=== PATIENT | male | born 1995 | race African-American/Black ===

== ENCOUNTER 2023-08-09 12:07 | Emergency (ER) | payer SELFPAY ==
[2023-08-09 12:16] VITALS: BP 126/77; PULSE 62; RESP 18; TEMP 98.2; BMI 27.0
[2023-08-09] MEDS ORDERED: BUPIVACAINE HCL/PF 0.5% (5 MG/ML) 30 ML VIAL IJ ONE (12:55)
[2023-08-09] MEDS ORDERED: LIDOCAINE HCL 2% (50ML VIAL) INF ONE (12:55)
[2023-08-09] MEDS ORDERED: LIDOCAINE HCL 2% (20ML MULTI-DOSE VIAL) ONE (13:03)
[2023-08-09] MEDS ORDERED: BUPIVACAINE HCL/PF 0.5% (5MG/ML) 10 ML VIAL ONE (13:04)
== END 2023-08-09 13:25 | disposition home or self-care (01) ==
LOC: JERFT 12:07
DX: K08.89 Other specified disorders of teeth and supporting structures (principal); R10.12 Left upper quadrant pain
CPT/HCPCS: 99282-25